=== PATIENT | female | born 1950 | race Caucasian/White ===

== ENCOUNTER 2021-03-30 21:59 | Emergency (ER) | payer OTHER ==
[~2021-03-30] VITALS: Ht 160 cm; Wt 842.8 kg
[2021-03-30 22:25] VITALS: BP 167/94
--- NOTE | 2021-03-30 22:33 | NUR ---
PT TO AWAIT IN LOBBY, AMBULATORY
--- NOTE | 2021-03-30 23:19 | NUR ---
pt ambulated to bed 08
--- NOTE | 2021-03-30 23:30 | NUR ---
PT IS A 70 Y.O. FEMALE BIB SELF C/O LACERATION TO THE LEFT WRIST. BLEEDING IS CONTROLLED. BANDAGE IN PLACE. LACERATION IS APPROXIMATELY 2 CM IN LENGTH. PT STATES PAIN IS 2/10 ON THE LEFT WRIST. PT IS A&OX4. BREATHING IS UNLABORED. NO DISTRESS NOTED. PMH: DM AND HYPOTHYROIDISM. NKA.
[2021-03-30] MEDS ORDERED: LIDOCAINE MPF 1% 5 ML ONE (23:33)
[2021-03-30] MEDS ORDERED: CEPH-588 PO (23:44)
--- NOTE | 2021-03-31 | NUR ---
DOCTOR AT BEDSIDE SUTURING LACERATION. TECH CLEANSED WOUND. PT TOLERATED IT WELL.
[2021-03-31] MEDS: cephALEXin 500 MG CAP PO ONE (00:26)
[2021-03-31] MEDS: LIDOCAINE MPF 1% 10 MG/ML VIAL INJ ONE (00:26)
[2021-03-31 00:36] VITALS: BP 167/94
== END 2021-03-31 00:30 | disposition home or self-care (01) ==
LOC: MED 21:59
DX: S61.512A Laceration without foreign body of left wrist, initial encounter (principal); E11.9 Type 2 diabetes mellitus without complications; E03.9 Hypothyroidism, unspecified; Z79.899 Other long term (current) drug therapy; W26.0XXA Contact with knife, initial encounter; Y93.89 Activity, other specified; Y92.89 Other specified places as the place of occurrence of the external cause; Y99.8 Other external cause status
CPT/HCPCS: 12002; 90471; 90715; 99283; J2001

== ENCOUNTER 2022-12-09 20:27 | Emergency (ER) | payer OTHER ==
[~2022-12-09 20:27] MED LIST: CEPH-588 PO
--- NOTE | 2022-12-09 21:26 | NUR ---
Called first time- no show in lobby or outside.
--- NOTE | 2022-12-09 22:02 | NUR ---
Patient left before triage.
== END 2022-12-09 22:02 | disposition left against medical advice (07) ==
LOC: MED 20:27
DX: R10.9 Unspecified abdominal pain (principal); Z53.21 Procedure and treatment not carried out due to patient leaving prior to being seen by health care provider